=== PATIENT | female | born 2000 | race Caucasian/White ===

== ENCOUNTER 2022-09-03 01:49 | Emergency (ER) | payer SELFPAY ==
[2022-09-03 01:50] VITALS: BP 130/81; PULSE 118; RESP 16; TEMP 36.9; O2SAT 97
--- NOTE | 2022-09-03 03:53 | PC.NURSE ---
Pt to the desk stating she will just take her chances and go home and call her doctor in the morning. Pt A&Ox4 and in no distress on leaving. Pt educated to return at any time if symptoms worsen or for new symptoms.
== END 2022-09-03 05:03 | disposition left against medical advice (07) ==
LOC: ANHED 04:00
DX: R10.32 Left lower quadrant pain (principal)
CPT/HCPCS: 99199

== ENCOUNTER → 2022-10-14 11:24 | Outpatient (CLI) | payer BC, SELFPAY ==
--- NOTE | ~2022-10-14 | US_ITS ---
Pelvic ultrasound. Clinical History: Ovarian cyst Technique: Realtime transabdominal and transvaginal scanning of the pelvis was performed. Color flow Doppler and Doppler spectral analysis were performed. Findings: The uterus is anteverted. The endometrial stripe has a thickness of 6 mm. IUD in satisfact ory position. No focal mass is identified. The right ovary measures 1.9 x 1.5 x 2.5 cm. No significant right ovarian or adnexal mass is seen. The left ovary measures 1.9 x 1.8 x 2.2 cm. No significant left ovarian or adnexal mass is seen. Vascular flow present in both ovaries on Doppler spectral analysis. There is no evidence of free fluid in the cul de sac. Impression: IUD in place, otherwise unremarkable exam. Reviewed, dictated and finalized at [facility]. Impression: IUD in place, otherwise unremarkable exam.
== END ==
PROVIDERS: PCP Registered Nurse; Visit Provider Registered Nurse
DX: N83.209 Unspecified ovarian cyst, unspecified side (principal); Z97.5 Presence of (intrauterine) contraceptive device
CPT/HCPCS: 76830; 76856